=== PATIENT | female | born 1950 | race Caucasian/White ===

== ENCOUNTER 2016-03-25 06:03 | Day surgery (SDC) | payer OTHER ==
[~2016-03-25 06:03] MED LIST: IV START KIT ONE; LACTATED RINGERS 1,000 ML ONE
[2016-03-25] MEDS ORDERED: FENTANYL 5 ML ONE (06:52)
[2016-03-25] MEDS ORDERED: MIDAZOLAM HCL 5 MG/5 ML VIAL ONE (06:52)
[2016-03-25] MEDS ORDERED: LACTATED RINGERS 1,000 ML IV SCH (07:00)
[2016-03-25] MEDS ORDERED: FENTANYL 250 MCG/5 ML AMP IV PRN (07:00)
[2016-03-25] MEDS ORDERED: MIDAZOLAM HCL 5 MG/5 ML VIAL IV PRN (07:00)
--- NOTE | 2016-03-27 10:53 | SURGPATH ---
[facility] [address] [place] [id number] Patient Name: KAYE LAWRENCE MR#: [id number] : 1950 Gender: F Specimen #: [id number] Collected: 03/25/2016 Received: 03/26/2016 Reported: 03/27/2016 Submitting Phys: YANNICK ROB Copy To Phys: [facility] Clinical History / Pre-Operative Diagnosis: SURVEILLANCE; FAMILY HISTORY OF COLON CA Specimen Source / Surgical Procedure Performed: MUCOSAL BIOPSY OF COLON AT 20 CM Interpretation: COLON AT 20 CM, BIOPSY: - PROMINENT MUCOSAL LYMPHOID AGGREGATE - NEGATIVE FOR EPITHELIAL POLYP Electronically Signed Out Jacob King M.D. Gross Description: The specimen is received in a formalin filled container labeled with the patient's name and "mucosal biopsy of colon at 20 cm". A single pale toro biopsy is 0.5 cm. Totally embedded in one cassette. Antoni Shaw, POrtizAOrtiz Microscopic Description: Microscopic performed. 1: [id number] K63.89
== END 2016-03-25 08:15 | disposition home or self-care (01) ==
LOC: SDC 06:03
PROVIDERS: ATTEND Family Medicine
PROC: 0DBE8ZX Excision of Large Intestine, Via Natural or Artificial Opening Endoscopic, Diagnostic (ICD-10-PCS; principal; 2016-03-25)
DX: Z12.11 Encounter for screening for malignant neoplasm of colon (principal); K57.30 Diverticulosis of large intestine without perforation or abscess without bleeding; R85.89 Other abnormal findings in specimens from digestive organs and abdominal cavity; Z80.0 Family history of malignant neoplasm of digestive organs; G40.A09 Absence epileptic syndrome, not intractable, without status epilepticus; I10 Essential (primary) hypertension; E78.2 Mixed hyperlipidemia
CPT/HCPCS: 45380; J3010; J2250; J7120